=== PATIENT | female | born 1935 | race Caucasian/White ===

== ENCOUNTER 2017-03-25 08:58 | Inpatient (IN) | payer OTHER ==
[~2017-03-25] VITALS: Ht 165.1 cm; Wt 101.5 kg
[2017-03-25 09:42] LABS: HEMATOCRIT 47.1 % (36.0-46.0); MCH 28.8 PG (29.0-34.0); MCHC 32.5 G/DL (30.0-36.0); MCV 88.5 FL (83-99); MEAN PLAT.VOLUME 10.4 uM^3 (9.5-12.4); PLATELET COUNT 223 K/uL (156-360); RBC DIS.WIDTH-SD 42.4 % (39-53); RED BLOOD COUNT 5.32 M/uL (3.80-5.20); WHITE BLOOD COUNT 6.6 K/uL (4.1-10.2)
[2017-03-25 10:00] LABS: CHLORIDE 110 mEq/L (99-109); SODIUM 141 mEq/L (136-147)
[2017-03-25 10:02] LABS: GLUCOSE 106 mg/dL (70-99)
[2017-03-25 10:03] LABS: ANION GAP 10 MEQ/L (2-14); TROP-I INTERPRETATION NEGATIVE; TROPONIN-I < 0.01 ng/mL (0.0-0.30)
[2017-03-25 10:05] LABS: GFR ESTIMATE (CALCULATED) 57 mL/min/
[2017-03-25 10:06] LABS: UREA NITROGEN (BUN) 18 mg/dL (9-23)
[2017-03-25] MEDS ORDERED: TYLENOL EXTRA500 MG PO (11:48)
[2017-03-25 14:32] VITALS: BP 141/91
[2017-03-25 15:36] LABS: TROP-I INTERPRETATION NEGATIVE; TROPONIN-I < 0.01 ng/mL (0.0-0.30)
[2017-03-25 15:37] LABS: CK-MB 1.6 ng/mL (0.0-4.9)
[2017-03-25 15:54] LABS: CREATINE KINASE 66 IU/L (1-294); TOTAL CK 66 IU/L (1-294)
[2017-03-25 20:45] VITALS: BP 183/90
[2017-03-25 21:21] LABS: CREATINE KINASE 67 IU/L (1-294); TOTAL CK 67 IU/L (1-294); TROP-I INTERPRETATION NEGATIVE; TROPONIN-I 0.02 ng/mL (0.0-0.30)
[2017-03-25 21:49] LABS: CK-MB 1.7 ng/mL (0.0-4.9)
[2017-03-25 23:25] VITALS: BP 142/86
[2017-03-25 23:26] VITALS: BP 142/86
[2017-03-26 05:46] LABS: ANION GAP 8 MEQ/L (2-14); CHLORIDE 107 MEQ/L (99-109); GFR ESTIMATE (CALCULATED) 57 mL/min/; GLUCOSE 98 mg/dL (70-99); POTASSIUM 4.5 MEQ/L (3.7-5.4); SAMPLE HEMOLYSIS CHECK 0; SAMPLE ICTERIC CHECK 0; SAMPLE LIPEMIA CHECK 0; SODIUM 142 MEQ/L (136-147); UREA NITROGEN (BUN) 16 mg/dL (9-23)
[2017-03-26 05:55] VITALS: BP 159/90
[2017-03-26 07:02] VITALS: BP 132/92
[2017-03-26 11:11] VITALS: BP 152/67
[2017-03-26] MEDS ORDERED: ELIQUIS5 MG PO (14:37)
[2017-03-26] MEDS ORDERED: CARDIZEM CD,CA240 MG PO (14:39)
[2017-03-26 14:56] VITALS: BP 143/90
== END 2017-03-26 15:10 | disposition home or self-care (01) | DRG 309 ==
LOC: EME 08:58 → EDOF 12:50 → ENRESERV 13:01 → 4EAST 14:11
PROVIDERS: Emergency Medicine; Internal Medicine
DX: I48.91 Unspecified atrial fibrillation (principal); H20.00 Unspecified acute and subacute iridocyclitis; E78.00 Pure hypercholesterolemia, unspecified; E78.5 Hyperlipidemia, unspecified; J30.2 Other seasonal allergic rhinitis; E66.9 Obesity, unspecified; I20.9 Angina pectoris, unspecified; I11.0 Hypertensive heart disease with heart failure; Z79.01 Long term (current) use of anticoagulants; Z86.010 Personal history of colon polyps; I50.9 Heart failure, unspecified; K21.9 Gastro-esophageal reflux disease without esophagitis; Z80.0 Family history of malignant neoplasm of digestive organs; Z80.42 Family history of malignant neoplasm of prostate; Z68.37 Body mass index [BMI] 37.0-37.9, adult; Z83.3 Family history of diabetes mellitus; Z80.8 Family history of malignant neoplasm of other organs or systems
CPT/HCPCS: 71010; 80048; 82550 91; 82553; 83880; 84443; 84484; 85027; 93005; 93306; 99281; 99285

== ENCOUNTER 2017-05-18 11:46 | Day surgery (SDC) | payer OTHER ==
[~2017-05-18] VITALS: Ht 162.6 cm; Wt 99.8 kg
[~2017-05-18 11:46] MED LIST: CARDIZEM CD,CA240 MG PO; CARTIA XT240 MG PO; ELIQUIS5 MG PO; FUROSEMIDE20 MG PO; LORAZEPAM0.5 MG PO; METOPROLOL SUCC50 MG PO; METOPROLOL TART50 MG PO; OMEPRAZOLE40 M1 PO; PAXIL10 MG PO; TYLENOL EXTRA500 MG PO
[2017-05-18] MEDS ORDERED: POTASSIUM CHLO20 ME2 PO (12:12)
[2017-05-18 12:38] LABS: HEMATOCRIT 44.6 % (36.0-46.0); MCH 28.6 PG (29.0-34.0); MCHC 31.4 G/DL (30.0-36.0); MEAN PLAT.VOLUME 9.8 uM^3 (9.5-12.4); PLATELET COUNT 233 K/uL (156-360); RBC DIS.WIDTH-CV 13.2 % (11.8-14.6); RBC DIS.WIDTH-SD 44.8 % (39-53); WHITE BLOOD COUNT 7.2 K/uL (4.1-10.2)
[2017-05-18 12:57] LABS: ANION GAP 8 MEQ/L (2-14); CHLORIDE 107 MEQ/L (99-109); GFR ESTIMATE (CALCULATED) > 59 mL/min/; GLUCOSE 123 mg/dL (70-99); POTASSIUM 3.8 MEQ/L (3.7-5.4); SAMPLE HEMOLYSIS CHECK 0; SAMPLE ICTERIC CHECK 0; SAMPLE LIPEMIA CHECK 0; SODIUM 141 MEQ/L (136-147); UREA NITROGEN (BUN) 12 mg/dL (9-23)
== END 2017-05-18 14:40 | disposition home or self-care (01) ==
LOC: CATH 11:46
PROVIDERS: Internal Medicine Cardiovascular Disease
PROC: 5A2204Z Restoration of Cardiac Rhythm, Single (ICD-10-PCS; principal; 2017-05-18)
DX: I48.1 Persistent atrial fibrillation (principal); I10 Essential (primary) hypertension; R06.00 Dyspnea, unspecified; K21.9 Gastro-esophageal reflux disease without esophagitis; Z79.01 Long term (current) use of anticoagulants
CPT/HCPCS: 80048; 85027; 93005; J2250

== ENCOUNTER → 2017-06-22 | Outpatient (CLI) | payer OTHER ==
[~2017-06-22] MED LIST changes: +POTASSIUM CHLO20 ME2 PO
== END | disposition home or self-care (01) ==
LOC: RES 10:37
DX: R06.09 Other forms of dyspnea (principal)
CPT/HCPCS: 94060; 94727; 94729